=== PATIENT | female | born 1990 | race Caucasian/White ===

== ENCOUNTER 2016-05-14 20:34 | Emergency (ER) | payer OTHER ==
[~2016-05-14] VITALS: Ht 154.9 cm; Wt 59.1 kg
[~2016-05-14 20:34] MED LIST: ETON68IM3 SQ; VIT C PO
[2016-05-14 20:51] VITALS: BP 122/84; PULSE 86; RESP 16; O2SAT 97
[2016-05-14 21:22] LABS: BASOPHILS % (AUTO) 0.2 % (0-3); EOSINOPHILS % (AUTO) 2.9 % (0-5); Mean Corpuscular Hemoglobin 27.4 pg (27.0-35.0); Mean Corpuscular Volume 84.4 fL (81-100); NEUTROPHILS % (AUTO) 42.8 % (40-74); Platelet Count 229 bil/L (150-400)
[2016-05-14 21:41] VITALS: BP 113/73; PULSE 72; RESP 15; O2SAT 99
--- NOTE | 2016-05-14 21:45 | DRSVH ---
PROCEDURE: X-RAY CHEST ONE VIEW, PORTABLE ([id number]) INDICATIONS: CHEST PAIN TECHNIQUE: One view of the chest was acquired. COMPARISON: None. FINDINGS: Surgical changes and devices: None. Lungs and pleura: No pleural effusions or pneumothorax. Lungs are clear. Mediastinum: Mediastinal contours appear normal. Heart size is normal. Bones and chest wall: No suspicious bony lesions. Overlying soft tissues appear unremarkable. IMPRESSION: Acute disease is not seen in the portable upright chest. Cause of left arm numbness is no t identified. Dictated by: Jair Duval M.D. on 05/14/2016 at 21:43 Approved by: Jair Duval M.D. on 05/14/2016 at 21:43
[2016-05-14 21:46] LABS: TROPONIN T 0.01 ug/L (0.0-0.011)
--- NOTE | 2016-05-14 22:47 | ED.REPORT ---
HPI-Chest Pain Under 40 Date of Service May 14, 2016 ED Provider: Jacinto Garner MD A 26 year old female with a family history of clots and a personal history of asthma and back ligament tear presents to the ED complaining of chest pain onset this morning. The pain is exacerbated by motion and deep breathing, but relieved by sitting down to rest. The pt denies leg edema. She has never experienced similar symptoms before this episode. Nursing Notes Stated Complaint: CHEST PAIN/ARM NUMBNESS Chief Complaint: Chest Pain Nursing Notes Reviewed: Yes Allergies: Coded Allergies: acetaminophen (Verified Allergy, Severe, "delusional and vomitting", 03/21) hydrocodone (Verified Allergy, Severe, "delusional and vomitting", ) erythromycin ethylsuccinate (Verified Allergy, Mild, 03/21/16) hydromorphone (Verified Adverse Reaction, Severe, Nausea,Vomiting, ) Scheduled ([Vit C]) 250 MG PO BID Miscellaneous Medications Etonogestrel (Nexplanon) 68 Mg Implant 68 MG SQ General Time Seen by MD: 22:45 Chief Complaint Chest pain Hx Obtained From: Patient Arrived By: Walk-in Sudden in Onset?: Yes Onset Occurred: 9 - 12 hours ago Recent Healthcare: Recent doctor visit, Recent hospitalization Similar Sx Previous: No Past Medical History Past Medical History Ovarian cysts and menorrhagia s/p hysterectomy kidney infections back injury asthma Past Surgical History Reports: Hysterectomy, Tonsillectomy Family History grandmother: blood clot Smoking History Never Smoker Social History Alcohol Use: Denies alcohol use Drug Use: Denies drug use Occupation Stay at home mom Ambulatory Status Independent Review of Systems Constitutional: Denies: Chills, Fever Respiratory: Reports: Pleuritic pain, Denies: Non-productive cough, Shortness of breath Cardiovascular: Reports: Chest pain GI: Denies: Abdominal pain Musculoskeletal: Denies: Back pain, Neck pain Skin: Denies Rash Complete sys rev & neg: except as marked. Physical Exam Initial Vital Signs Vital Signs (First) Date Time Temp Pulse Resp B/P Pulse Ox O2 Delivery O2 Flow Rate FiO2 05/14/16 20:51 36.6 86 16 122/84 97 Room Air Initial VS: Reviewed, Vital signs normal General/Constitutional: Awake, Alert Respiratory / Chest: Atraumatic, Breath sounds NL, Breath sounds = bilat, No respiratory distress Cardiovascular: Heart rate NL, Regular rhythm, Heart sounds NL Neck: Atraumatic, Supple, Full range of motion Abdomen: Atraumatic, Soft, Non-tender Back: Atraumatic, Full range of motion Lower Extremity / Pelvis / MS: Atraumatic, Full range of motion Skin: Atraumatic, Color NL, No rash, Warm, Dry Neurologic: Oriented X3, Speech NL, No motor deficits, No sensory deficits Psychiatric: Affect NL, Mood NL Head / Eyes: Atraumatic, Normocephalic, PERRL, EOMI ENT: Atraumatic, Airway patent, Mucous membranes moist Upper Extremity / MS: Atraumatic, Full range of motion Ankle / Foot: Atraumatic, Full range of motion no ankle edema Interpretation & Diagnostics Lab Results Interpretation Result Diagram: 05/14/16210805/14/[id number] Test 05/14/16 21:09 White Blood Count 8.7th/mm3 (3.8-10.1) Red Blood Count 4.67mil/mm3 (3.90-5.20) Hemoglobin 12.8g/dL (12.0-15.6) Hematocrit 39.4% (35.0-46.0) Mean Corpuscular Volume 84.4fL (81-100) Mean Corpuscular Hemoglobin 27.4pg (27.0-35.0) Mean Corpuscular Hemoglobin Concent 32.5% (32.0-37.0) Red Cell Distribution Width 12.4% (12.3-15.4) Platelet Count 229bil/L (150-400) Neutrophils (%) (Auto) 42.8% (40-74) Lymphocytes (%) (Auto) 44.0% (14-46) Monocytes (%) (Auto) 10.0% (4-12) Eosinophils (%) (Auto) 2.9% (0-5) Basophils (%) (Auto) 0.2% (0-3) D-Dimer < 0.5mg/L (<0.50) Sodium Level 140mEq/L (134-144) Potassium Level 3.6mEq/L (3.5-5.2) Chloride Level 102mEq/L (97-108) Carbon Dioxide Level 25mmol/L (18-29) Blood Urea Nitrogen 15mg/dL (6-20) Creatinine 0.61mg/dL (0.57-1.00) Estimat Glomerular Filtration Rate 169mL/min (>59) Glucose Level 104mg/dL (60-99) Calcium Level 9.0mg/dL (8.5-10.1) Magnesium Level 2.0mg/dL (1.6-2.6) Total Bilirubin 0.2mg/dL (0.0-1.2) Aspartate Amino Transf (AST/SGOT) 16U/L (0-50) Alanine Aminotransferase (ALT/SGPT) 11U/L (0-32) Alkaline Phosphatase 49U/L (25-150) Troponin T 0.010ug/L (0.0-0.011) Total Protein 7.9g/dL (6.4-8.4) Albumin 4.3g/dL (3.4-5.0) X-Ray Chest Interpretation Chest Xray Interpretation: IMPRESSION: Acute disease is not seen in the portable upright chest. Cause of left arm numbness is not identified. Dictated by: Jair Duval M.D. on 05/14/2016 at 21:43 Approved by: Jair Duval M.D. on 05/14/2016 at 21:43 Interpretation / Wet Read by: Interpret - Radiologist Re-Eval/Medical Decision Med Decision/Clinical Course Pleuritic chest pain in a young female with history of GERD. Labs, to include D -dimer, EKG, and chest x-ray are normal. No indication of serious illness at this time. Likely diagnosis pleurisy and/or costochondritis. Source of Hx: Old records Re-Evaluation/Progress : Time of Eval: 00:33 Patient Status: Condition improved Re-Evaluation/Progress Note: Pt rechecked, who is resting comfortably. Lab and radiology results are discussed, as well as the plan for discharge. The pt understands and agrees with the plan. All questions are addressed at this time. Counseled Regarding: Diagnosis, Lab results, Need for follow-up, When/why to return to ED Discharge & Departure Primary Impression: Pleuritic chest pain Disposition: Home Discharge Condition All VS Reviewed: Yes Condition: Stable Patient Instructions: Chest Pain (ED) Additional Instructions: Labs, chest x-ray, and EKG show no indication of serious illness of the heart or lungs. Your pain is most likely due to a viral inflammation/infection of the lining of the lungs (pleurisy) or the rib joints (costochondritis). Anti- inflammatory medications are the best treatment for this, but because of your history of gastritis it would be better to use Tylenol. We have given you an injectable anti-inflammatory in the emergency room: Toradol (ketorolac). Follow up with your regular doctor as needed for persistent symptoms. Referrals: Yvette Nick MD (PCP) Scribe Attestation Portions of this note were transcribed by Swati Wells. I, Dr. Garner personally performed the history, physical exam and medical decision-making; I reviewed and confirmed the accuracy of the information in the transcribed note. Signed by: David Baxter, 05/15/2016 and 01:13. copies to: Yvette Nick MD, Howard L MD May 14, 2016 22:47 SWATI WELLS May 14, 2016 23:18
[2016-05-15 00:44] VITALS: BP 113/73; PULSE 92; RESP 16; O2SAT 100
[2016-05-15 00:47] VITALS: BP 113/73; PULSE 90; RESP 16; O2SAT 100
[2016-08-25] MEDS ORDERED: INDO25CA PO (10:57)
[2016-08-25] MEDS ORDERED: ETON68IM3 SQ (10:57)
[2016-08-25] MEDS ORDERED: OXYC1TAB24 PO (10:57)
[2016-08-25] MEDS ORDERED: MULT-1018 PO (10:57)
== END 2016-05-15 00:48 | disposition home or self-care (01) ==
LOC: SED 20:34
DX: R07.81 Pleurodynia (principal); J45.909 Unspecified asthma, uncomplicated; Z88.6 Allergy status to analgesic agent; Z88.5 Allergy status to narcotic agent; Z88.1 Allergy status to other antibiotic agents

== ENCOUNTER 2016-08-02 19:22 | Emergency (ER) | payer OTHER ==
[~2016-08-02] VITALS: Ht 154.9 cm; Wt 60.0 kg
[2016-08-02 19:55] VITALS: BP 111/71; PULSE 83; RESP 20; O2SAT 97
[2016-08-02 21:17] LABS: BASOPHILS % (AUTO) 0.2 % (0-3); EOSINOPHILS % (AUTO) 2.7 % (0-5); MONOCYTES % (AUTO) 10.7 % (4-12); Mean Corpuscular Hemoglobin 27.3 pg (27.0-35.0); Mean Corpuscular Volume 83.4 fL (81-100); NEUTROPHILS % (AUTO) 48.5 % (40-74); Platelet Count 240 bil/L (150-400)
--- NOTE | 2016-08-02 21:26 | ED.REPORT ---
HPI-Abd Pain F Under 40 Date of Service Aug 02, 2016 ED Provider: Binh Fernández MD 26 year old female with a history of hysterectomy, kidney infections, and ovarian cysts presents to the ER accompanied by her spouse complaining of six days of lower abdominal pain, worsening markedly this evening around 16:30. Patient denies fever, constipation, diarrhea, urinary symptoms, nausea, and vomiting. No history of appendectomy. Nursing Notes Stated Complaint: CRAMPING Chief Complaint: Female Abdominal Pain Nursing Notes Reviewed: Yes Allergies: Coded Allergies: acetaminophen (Verified Allergy, Severe, "delusional and vomitting", 03/21) hydrocodone (Verified Allergy, Severe, "delusional and vomitting", ) erythromycin ethylsuccinate (Verified Allergy, Mild, 03/21/16) ondansetron (Verified Allergy, Mild, N/V, 08/02/16) hydromorphone (Verified Adverse Reaction, Severe, Nausea,Vomiting, ) Scheduled ([Vit C]) 250 MG PO BID Promethazine HCl (Phenergan) 25 Mg Supp.rect 25 MG RC TID Scheduled PRN Ibuprofen (Ibuprofen) 600 Mg Tablet 600 MG PO QID PRN PRN For Pain Miscellaneous Medications Etonogestrel (Nexplanon) 68 Mg Implant 68 MG SQ General Time Seen by MD: 21:25 Chief Complaint Abdominal pain Hx Obtained From: Patient Arrived By: Walk-in Sudden in Onset?: No Onset Occurred: 6 days ago Symptom Duration: Since onset Location: : Abdomen lower Quality: Cramping, Painful Severity: Current: Moderate Severity: Maximum: Moderate Associated with: Denies: Constipation, Diarrhea, Dysuria, Fever, Nausea, Vomiting Pertinent Negative: Pt denies other symptoms Similar Sx Previous: Yes Past Medical History Past Medical History Ovarian cysts and menorrhagia s/p hysterectomy kidney infections back injury asthma Past Surgical History Reports: Hysterectomy, Tonsillectomy Family History grandmother: blood clot Smoking History Never Smoker Social History Alcohol Use: Denies alcohol use Drug Use: Denies drug use 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 Physical Exam Initial Vital Signs Vital Signs (First) Date Time Temp Pulse Resp B/P Pulse Ox O2 Delivery O2 Flow Rate FiO2 08/02/16 19:55 36.5 83 20 111/71 97 Room Air Initial VS: Reviewed Head / Eyes: Atraumatic, Normocephalic Neck: Supple, Non-tender, Full range of motion Extremities: Vascular intact, Neuro intact, No swelling, No tenderness Skin: Warm, Dry, No cyanosis Neurologic: Alert, Oriented, Nonfocal Psychiatric: Mood/affect normal, Behavior normal, Normal thought content General/Constitutional: Awake, Alert, Well developed, Well nourished Respiratory / Chest: Breath sounds NL, Breath sounds = bilat, No respiratory distress, No rales, No rhonchi, No wheezing Cardiovascular: Heart rate NL, Regular rhythm, Heart sounds NL, Peripheral circulation NL Abdomen: Soft, No guarding, No rebound, No distention Tenderness/Guarding/Rebound: Positive: Tender LLQ... (greater than right), Tender RLQ... Back: Inspection NL, Non-tender, No CVA tenderness ENT: Airway patent Mouth: Positive: Mucous membranes dry Interpretation & Diagnostics US ABDOMEN, RLQ CONCLUSION: Normal appendix. Electronically signed by Maxim Chacon MD Lab Results Interpretation Result Diagram: 08/02/16205708/02/[id number] Test 08/02/16 20:58 08/02/16 21:22 White Blood Count 8.5th/mm3 (3.8-10.1) Red Blood Count 4.51mil/mm3 (3.90-5.20) Hemoglobin 12.3g/dL (12.0-15.6) Hematocrit 37.6% (35.0-46.0) Mean Corpuscular Volume 83.4fL (81-100) Mean Corpuscular Hemoglobin 27.3pg (27.0-35.0) Mean Corpuscular Hemoglobin Concent 32.7% (32.0-37.0) Red Cell Distribution Width 12.7% (12.3-15.4) Platelet Count 240bil/L (150-400) Neutrophils (%) (Auto) 48.5% (40-74) Lymphocytes (%) (Auto) 37.8% (14-46) Monocytes (%) (Auto) 10.7% (4-12) Eosinophils (%) (Auto) 2.7% (0-5) Basophils (%) (Auto) 0.2% (0-3) Sodium Level 138mEq/L (134-144) Potassium Level 3.6mEq/L (3.5-5.2) Chloride Level 101mEq/L (97-108) Carbon Dioxide Level 23mmol/L (18-29) Blood Urea Nitrogen 11mg/dL (6-20) Creatinine 0.59mg/dL (0.57-1.00) Estimat Glomerular Filtration Rate 175mL/min (>59) Glucose Level 77mg/dL (60-99) Calcium Level 9.4mg/dL (8.5-10.1) Magnesium Level 2.0mg/dL (1.6-2.6) Total Bilirubin 0.2mg/dL (0.0-1.2) Aspartate Amino Transf (AST/SGOT) 17U/L (0-50) Alanine Aminotransferase (ALT/SGPT) 11U/L (0-32) Alkaline Phosphatase 44U/L (25-150) Total Protein 7.6g/dL (6.4-8.4) Albumin 4.2g/dL (3.4-5.0) Lipase 30U/L (13-60) Urine Color Yellow (YELLOW) Urine Appearance Clear (CLEAR,HAZY) Urine pH 6.0 (5.0-8.0) Urine Specific [place] 1.020 (1.003-1.035) Urine Protein Negativemg/dL (NEG,TRACE) Urine Glucose (UA) Negativemg/dL (NEGATIVE) Urine Ketones Negativemg/dL (NEGATIVE) Urine Occult Blood Negative (NEGATIVE) Urine Nitrite Negative (NEGATIVE) Urine Bilirubin Negative (NEGATIVE) Urine Urobilinogen Normalmg/dL (NORMAL) Urine Leukocyte Esterase Negative (NEGATIVE) Urine RBC 0-2/hpf (0-2) Urine WBC 0-5/hpf (0-5) Urine Epithelial Cells Many/hpf (NONE-MOD) Urine Crystals None seen (NONE SEEN) Urine Bacteria Many/hpf (NONE-FEW) Urine Hyaline Casts None/lpf (NONE) Urine Granular Casts None seen (NONE SEEN) Urine Waxy Casts None seen (NONE SEEN) Urine Red Blood Cell Casts None seen (NONE SEEN) Urine White Blood Cell Casts None seen (NONE SEEN) Urine Mucus None seen (None Seen) Urine Trichomonas None seen (NONE SEEN) Urine Yeast None (NONE SEEN) Urinalysis Comment None Urine Culture Reflexed Indicated Hold Urine Received (Received) X-Ray Abdominal Interpretation Bowels full of stool. Study: 2 view Interpretation / Wet Read by: Wet read ED physician Re-Eval/Medical Decision Med Decision/Clinical Course Med Decision/Clinical Course: 26-year-old with abdominal pain for the past five days, lower quadrant only and left worse than right. She has no evidence of bleeding, normal-appearing appendix on ultrasound, and benign-appearing labs. Risk benefits alternatives of CT discussed at length and she reasonably declined CT as advised. A single upright abdomens suggest significant stool over into the left colon and I suspect that constipation is at least a piece of her current discomfort. Provided with two guaiac suppository and milk of magnesia with a three-day route of milk of magnesia nightly suggested. Follow up with PCP. Prompt return if worse. May need to progress to CT scanning, but that is better deferred at this point given the benign labs and evaluation presently. Re-Evaluation/Progress #1: Time of Eval: 10:41 Re-Evaluation/Progress Note: Discussed US results and advised on treatment options. Patient is amenable to the plan for CT. Re-Evaluation/Progress #2: Time of Eval: 23:30 Re-Evaluation/Progress Note: Discussed lab and radiology results and plan to discharge. Patient is amenable to the plan. Return precautions given. All other questions addressed. Counseled Regarding: Diagnosis, Lab results, Need for follow-up, When/why to return to ED Discharge & Departure Primary Impression: Abdominal pain, bilateral lower quadrant Additional Impression: Constipation Disposition: Home Discharge Condition All VS Reviewed: Yes Condition: Stable Patient Instructions: Acute Abdominal Pain (ED), Constipation (DC) Additional Instructions: We do not see any evidence of significant pathology on the studies we have available. The plain x-ray shows abundant stool, and the problem may be constipation. Your blood studies are reassuringly very normal. Begin milk of magnesia 2 tablespoons nightly for three nights. Follow-up with your doctor in the office. Ibuprofen if needed for acute discomfort Zofran if needed for nausea Return if any immediate issues, particularly worsening pain, fever, vomiting, or other new symptoms of concern Referrals: OTHER,PHYSICIAN (PCP) Scribe Attestation Portions of this note were transcribed by Kaushal Hidalgo. I, Dr. Fernández, personally performed the history, physical exam and medical decision-making; I reviewed and confirmed the accuracy of the information in the transcribed note. Signed by: David Flores. 08/03/2016 - 01:06 Binh Fernández MD Aug 02, 2016 21:26 KAUSHAL HIDALGO Aug 02, 2016 21:33
[2016-08-02] MEDS ORDERED: 0.9% Sodium Chloride 1,000 ML IV ONE (21:32)
[2016-08-02] MEDS ORDERED: fentaNYL-PF 50 mCg/mL 2 mL Inj IVPUSH PRN (21:35)
[2016-08-02] MEDS ORDERED: Ketorolac 15 mg/mL Inj IVPUSH ONE (21:35)
[2016-08-02 21:52] LABS: APPEARANCE,URINE CLEAR (CLEAR,HAZY); COLOR,URINE YELLOW (YELLOW)
[2016-08-02] MEDS: 0.9% Sodium Chloride 1,000 ML IV SCH ×2 (21:52→22:43)
[2016-08-02 21:53] LABS: OCCULT BLOOD,URINE NEGATIVE (NEGATIVE); UROBILINOGEN,URINE NORMAL (NORMAL)
[2016-08-02] MEDS ORDERED: Iohexol 300 mg/mL 30 mL Inj PO ONE (22:40)
[2016-08-02] MEDS ORDERED: Magnesium Hydroxide 10 mL Oral Concentration PO ONE (23:25)
[2016-08-02] MEDS ORDERED: IBUP-1827 PO (23:27)
[2016-08-02] MEDS ORDERED: PROM25SU46 RC (23:27)
[2016-08-02 23:49] VITALS: BP 103/68; PULSE 68; RESP 18; O2SAT 99
--- NOTE | 2016-08-03 08:53 | DRSVH ---
PROCEDURE: US APPENDIX INDICATIONS: bilat lower quad pain, hx ovar cysts and bleeding TECHNIQUE: Real-time focused scanning was performed of the abdomen with attention to the appendix, with image do cumentation. COMPARISON: None. FINDINGS: Appendix visualization: Well-visualized appendix. Appendix measurements: 5.0 mm Associated findings: Echogenic fat: Absent. Appendiceal compressibility: Present. Appendicoliths: Absent. Nearby free fluid: Absent. Lymphadenopathy: Absent. Tenderness on exam: Present. IMPRESSION: Normal appendix at time of examination. If pain persists and developing appendicitis is of clinical concern, consider repeat ultrasound. Note: These findings are concordant with the preliminary interpretation. Dictated by: Naman RINCON Interpreted: Jolynn Pinzon MD on 08/03/2016 at 8:51 Transcribed by: ALINE on 08/03/2016 at 8:52 Approved by: Jolynn Pinzon MD, PhD on 08/03/2016 at 16:26
--- NOTE | 2016-08-03 08:55 | DRSVH ---
PROCEDURE: X-RAY ABDOMEN, ONE VIEW ([id number]) INDICATIONS: pain lower quads TECHNIQUE: One view of the abdomen acquired. COMPARISON: None. FINDINGS: Surgical changes and devices: None. Bowel: Bowel gas pattern is normal. Soft tissues: No suspicious abdominal calcifications. Visualized solid organ contours appear normal in size. Bones: No suspicious bony lesions. IMPRESSION: No acute process identified. Dictated by: Naman German [facility] Interpreted: Jolynn Pinzon MD on 08/03/2016 at 8:54 Transcribed by: ALINE on 08/03/2016 at 8:55 Approved by: Jolynn Pinzon MD, PhD on 08/03/2016 at 16:27
[2016-08-25] MEDS ORDERED: OXYC1TAB24 PO (10:57)
[2016-08-25] MEDS ORDERED: INDO25CA PO (10:57)
[2016-08-25] MEDS ORDERED: ETON68IM3 SQ (10:57)
[2016-08-25] MEDS ORDERED: MULT-1018 PO (10:57)
== END 2016-08-02 23:53 | disposition home or self-care (01) ==
LOC: SED 19:22
DX: K59.00 Constipation, unspecified (principal); J45.909 Unspecified asthma, uncomplicated; Z90.710 Acquired absence of both cervix and uterus; Z87.448 Personal history of other diseases of urinary system; Z87.42 Personal history of other diseases of the female genital tract; Z88.1 Allergy status to other antibiotic agents; Z88.5 Allergy status to narcotic agent; Z88.6 Allergy status to analgesic agent; Z88.8 Allergy status to other drugs, medicaments and biological substances
CPT/HCPCS: 36415; 74000; 76705; 80053; 81000; 83690; 83735; 85025; 87086; 96361; 96374; 96375; 99285; J1885; J3010; J7030

== ENCOUNTER 2016-08-29 11:28 | Day surgery (SDC) | payer OTHER ==
[~2016-08-29] VITALS: Ht 154.9 cm; Wt 59.5 kg
[2016-08-29] VITALS (11 sets, daily range): BP systolic 102–131; BP diastolic 61–78; PULSE 52–95; RESP 9–17; O2SAT 97–100
[~2016-08-29 11:28] MED LIST changes: +CeFAZolin Inj 2 GM in IV Premix 1 EACH IV ONE; +Heparin 5,000 Unit/mL Inj SUBQ ONE; +INDO25CA PO; +Lactated Ringer's 1,000 ML IV SCH; +MULT-1018 PO; +OXYC1TAB24 PO; -VIT C PO
[2016-08-29] MEDS ORDERED: Ondansetron 2 mg/mL 2 mL Inj ONE (11:29)
[2016-08-29] MEDS ORDERED: fentaNYL-PF 50 mCg/mL 2 mL Inj ONE (11:29)
[2016-08-29] MEDS ORDERED: MetoCLOpramide 5 mg/mL 2 mL Inj ONE (11:29)
[2016-08-29] MEDS ORDERED: Propofol 10,000 mCg/mL 20 mL Inj ONE (11:29)
[2016-08-29] MEDS ORDERED: Dexamethasone 4 mg/mL Inj ONE (11:29)
[2016-08-29] MEDS ORDERED: Neostigmine 1 mg/mL 10 mL Inj ONE (11:29)
[2016-08-29] MEDS ORDERED: Rocuronium 10 mg/mL 5 mL Inj ONE (11:29)
[2016-08-29] MEDS ORDERED: Glycopyrrolate 0.2 MG/ML 1mL Inj ONE (11:29)
[2016-08-29] MEDS ORDERED: Heparin 5,000 Unit/mL Inj ONE (11:30)
[2016-08-29] MEDS ORDERED: CeFAZolin Inj 2 gm / 50mL D5W IV ONE (11:31)
[2016-08-29] MEDS ORDERED: metroNIDAZOLE 500 mg/100 mL NS Premix IV ONE (11:31)
--- NOTE | 2016-08-29 15:01 | PCM.HPANE ---
Patient Data Surgeon Admitting Provider: Attending Provider:Medina Mccray MD Primary Care Physician:Yvette Nick MD Other Provider:Christiana Sanches Anesthesia Reason for Visit Pelvic Pain, Right Lower Quadrant Pain Ht/WT & BMI Height (Feet): 5 Height (Inches): 1.00 Weight (Kilograms): 59.5 Body Mass Index 24.00 Allergies Coded Allergies: acetaminophen (Verified Allergy, Severe, "delusional and vomitting", 03/21) hydrocodone (Verified Allergy, Severe, "delusional and vomitting", ) erythromycin ethylsuccinate (Verified Allergy, Mild, 03/21/16) ondansetron (Verified Allergy, Mild, N/V, 08/02/16) hydromorphone (Verified Adverse Reaction, Severe, Nausea,Vomiting, ) Past Anesthesia History Anesthesia History: Denies:: Abnormal Airway, Anesthesia Reactions, Difficult Intubation Diabetes History Hx Diabetes?: No Current Bedside Blood Glucose: 85 MRSA MRSA: No Medications Home Meds Incl Beta Didi: No Reported Medications oxyCODONE-Acetaminophen 5-325 mg 1 Each Tablet1 Tab PO Q4H PRN For Pain Ref 0 08/25/16 Etonogestrel (Nexplanon)68 Mg [id number] Mg SQ DAILY 08/25/16 Multivitamin (Multi Vitamin Daily)1 Each Tablet1 Each PO DAILY 30 Days Ref 0 08/25/16 Indomethacin 25 Mg [id number] Mg PO TID Ref 0 08/25/16 Discontinued Reported Medications Etonogestrel (Nexplanon)68 Mg [id number] Mg SQ 10/13/14 [Vit C] No Conflict [id number] Mg PO BID 07/27/12 Discontinued Scripts Promethazine HCl (Phenergan)25 Mg Supp.rect25 Mg RC TID #10 SUPP Prov:Binh Fernández MD 08/02/16 Ibuprofen 600 Mg [id number] Mg PO QID PRN For Pain #30 TABLET Prov:Binh Fernández MD 08/02/16 History History of ENT Problems?: No HEENT History: Denies:: Abnormal Airway Cataracts Difficult Intubation Dysphagia Hearing Problem Sinus Problem TMJ Denture Type: None Teeth Condition: Within Normal Limits Hx of Heart Problems?: No Cardiovascular History: Denies:: AICD Abdominal Aortic Aneurism Atrial Fibrillation Cardiac Surgery Chest Pain Congestive Heart Failure Edema Heart Murmur Hypertension Irregular Heartbeat Pacemaker Rheumatic Fever Thrombophlebitis Valvular Heart Disease Hx of Respiratory Problem?: Yes Respiratory History: Positive for:: Asthma (rare sx) Denies:: COPD Emphysema Oxygen Administration Tuberculosis Use of C-PAP Machine Hx Neurologic Problems?: No Neurological History: Denies:: Alzheimer's Disease CVA Dementia Dizziness Headaches Multiple Sclerosis Parkinson's Disease Seizures Hx of GI Problems?: No Other GI Pertinent History: persistent right sided pelvic pain- appy scheduled this admission Hx of Problems?: No Genitourinary History: Denies:: HX of Hemodialysis Kidney Stones Urinary Tract Infection Female Hx: Denies:: Currently Problems with Breasts? Hx Musculoskeletal Problems?: No Musculoskeletal History: Denies:: Back Injury Degenerative Joint Joint Replacement Musculoskeletal Trauma Systemic Lupus Hx of Psycho/Social Problems?: No Psycho Social History: Denies:: Anxiety Bipolar Disorder Hx Depression Suicide Attempt Hx Surgeries?: Yes (partial hyst, tonsil) Hx Any Other Health Problems?: Yes Other History: Denies:: Cancer Thyroid Disease Hx Diabetes: NoBedside Blood Glucose: 85 Hx Alcohol Use: NoHx Substance Use: No Smoking Status: Never Smoker Have You Smoked inLast 12 mo: No Stop/Bang Treated for Sleep Apnea?: No Do You Have a CPAP Machine?: No P-Blood Pressure: treated: No B- Body Mass Index > 35 kg/m2: No A- Age over 50: No N- Neck Large Circumference: No G- Gender Male: No YUKI Risk Assessment: Low Risk, <3 Yes Risk Assessment Category Category 1A: Patient has history of documented sleep apnea, and HAS NOT received any narcotic, sedative or anesthesia administration during this stay. Category 1B: Patient has history of documented sleep apnea, and HAS received any narcotic , sedative or anesthesia administration during this stay Category 2: Patient has SUSPECTED Obstructive Sleep Apnea, and HAS received any narcotic , sedative or anesthesia administration during this stay. Category 3: Patient has SUSPECTED Obstructive Sleep Apnea and HAS NOT received narcotic, sedative or anesthesia administration during this stay. Category 4: Outpatient in Procedural Areas with known sleep apnea or who screen positive for High Risk via the STOP/BANG questionnaire. Exam Exam Vital Signs Vital Signs Date Time Temp Pulse Resp B/P Pulse Ox O2 Delivery O2 Flow Rate FiO2 08/29/16 12:00 36.9 70 16 107/73 100 Room Air General Appearance: Oriented X3 HEENT/AIRWAY: MP 1 Lungs: Normal Air Movement Heart: Regular Rate/Rhythm Meds/Labs/Diagnostics Bedside Blood Glucose: 85 Plan Impression Patient chart reviewed, patient interviewed and anesthestic plan with risks, benefits, and alternatives discussed, and informed consent obtained. ASA Physical Status: ASA2 Mod Systemic Disease Anesthetic Plan: GA Bene/Risks/Altern/Consents: Yes HP Complete Prior to Induction: Yes Ricardo Leong MD Aug 29, 2016 15:01
[2016-08-29] MEDS ORDERED: Lactated Ringer's 1,000 ML IV ONE (15:18)
[2016-08-29] MEDS ORDERED: Bupivacaine-MPF 0.5% 30 mL Inj INFILTRATE ONE (16:01)
[2016-08-29] MEDS ORDERED: oxyCODONE-Acetamin 5-325 mg Tablet PO PRN (16:55)
[2016-08-29] MEDS ORDERED: MetoCLOpramide 5 mg/mL 2 mL Inj IVPUSH PRN ×2 (16:55→17:15)
[2016-08-29] MEDS ORDERED: diphenhydrAMINE 25 mg Capsule PO PRN (16:55)
--- NOTE | 2016-08-29 16:59 | PCM.SURGOP ---
Surgical Operative Report Date of Service: Aug 29, 2016 Pre Operative Diagnosis 1. Chronic pelvic pain 2. Ovarian cysts Post Operative Diagnosis 1. Chronic pelvic pain 2. Ovarian cysts Procedure: 1. Laparoscopic right oophorectomy 2. Peritoneal biopsies 3. Laparoscopic appendectomy performed by Enrico Navas see his operative note. Surgeon and Car Park Attendant: Surgeon: Medina Mccray MD Assistants: Nadege Stevens MD Resident: Zully Dee DO PGY1 Indication for Procedure 23-year-old 4 para 2 with a history of a previous hysterectomy and endometriosis who has persistent pelvic pain and recurrent ovarian cysts. She wanted her right ovary removed and a laparoscopy to reevaluate for recurrent endometriosis or other cause for her pain. She was seen by Dr. Enrico Navas with general surgery to have an incidental appendectomy performed at the time of her laparoscopy given her history of pain and multiple ER visits. Findings: Intraoperative findings showing normal-appearing ovaries bilaterally. There were no pelvic adhesions appreciated. The upper abdomen was normal in appearance. The appendix was normal in appearance. There were some white lesions bilaterally on the pelvic sidewalls which could be endometriosis or scar tissue related to previous hysterectomy. Procedure Details Patient was taken operating room where her general anesthesia was obtained without difficulty. She was placed in the lithotomy position and prepared and draped in normal sterile fashion. Dr. Calos Navas performed a laparoscopic appendectomy. See his operative note for details. The patient had an 12 millimeter umbilical port and 2 left sided 5 mm ports placed. Survey of the abdomen was noted as above. The ureters were clearly identified and the right ovary was grasped and the infundibulopelvic ligament was transected with endometrioid device. The right ovary was removed through the umbilicus. Good hemostasis was assured. The Thunderbeat cautery device was then used to excise a small piece of peritoneum bilaterally from the pelvic sidewalls and were sent to pathology. Posterior cul-de-sac was noted be free of any adhesions. The appendectomy site was hemostatic at the end of the case. All instruments removed from the patient's peritoneal cavity and the pneumoperitoneum was released. The fascia at the umbilicus was closed with 0 Vicryl suture in a running fashion. The skin at all port sites were closed with a 4-0 Vicryl in subcutaneous fashion and Dermabond applied. All lap instrument and needle counts were correct 2. at the end of the procedure patient was taken to recovery room awake and in good condition. Complications There were no periprocedural complications identified. Surgical Specimen Removed: Yes Specimen sent to Pathology: Yes Surgical Specimen description: 1. Appendix 2. Right ovary 3. Left and Right pelvic wall peritoneal biopsies Anesthetic Plan: GA Grafts, Implants: None Output, Estimated Blood Loss: 5 Blood Administration during hardwick: No Stent(s) none Catheters: None Post Operative Plan Discharge home when awake and stable Medina Mccray MD Aug 29, 2016 16:59
--- NOTE | 2016-08-29 17:08 | PCM.DIGYN ---
Surgical Discharge Instruction Dates of Hospitalization Date of Hospital Admission Providers Admitting Physician: Primary Care Physician: Yvette Nick MD Attending Physician: Medina Mccray MD Diagnosis at Time of Discharge Diagnosis at time of discharge 1. Chronic pelvic pain 2. Ovarian cysts Problems: Diet Discharge Diet: No restrictions Activity Discharge Activity-General: Balance rest and activity, No lifting >15 pounds for 2 weeks, No lifting >10 pounds for 4-6 weeks, No driving while taking narcotic Dressing and Incisional Care Dressing Care: Keep dressing clean, dry & intact, Remove outer dressing after 24 hrs Hygiene: May shower, Wash incision with soap & water, DO NOT soak incision under water, NO bathtub, hot tub or whirlpool Follow Up Plan Follow-up Provider (F9): Medina Mccray MD Follow-up appointment: Weeks (2) Call your provider for: Fever, Chills, Shortness of breath, Vomitting, Drainage at incision, Wound redness, Increasing pain Zully Dee DO Aug 29, 2016 17:08
[2016-08-29] MEDS ORDERED: Lactated Ringer's 500 ML IV PRN (17:11)
[2016-08-29] MEDS ORDERED: Lactated Ringer's 1,000 ML IV SCH (17:11)
[2016-08-29] MEDS ORDERED: Phenylephrine 10,000 mCg/mL Inj IVPUSH PRN (17:15)
[2016-08-29] MEDS ORDERED: EPHEDrine Sulfate 50 mg/mL Inj IVPUSH PRN (17:15)
[2016-08-29] MEDS ORDERED: Dexamethasone 4 mg/mL Inj IVPUSH PRN (17:15)
[2016-08-29] MEDS: fentaNYL-PF 50 mCg/mL 2 mL Inj IVPUSH PRN ×3 (17:16→17:53)
--- NOTE | 2016-08-29 23:00 | OP ---
[address] [address] OPERATIVE REPORT PATIENT: STEVE KWOK : 1990 MR#: [id number] ADMIT: 08/29/2016 JOB ID: [id number] DATE OF SURGERY: 08/29/2016 PREOPERATIVE DIAGNOSIS(ES): Chronic recurrent right lower quadrant pain. POSTOPERATIVE DIAGNOSIS(ES): Chronic recurrent right lower quadrant pain. PROCEDURE: Laparoscopic appendectomy. SURGEON: Gualberto Navas MD. SALES DRIVER: Medina Mccray MD. INDICATIONS: The patient is a 26-year-old female who has chronic recurrent right lower quadrant pain requiring frequent trips to the emergency department. Appendicitis has never been identified. But after discussing options with the patient, and seeing her in consultation for Dr. Binh Mccray, Dr. Mccray planned to do a right oophorectomy. I discussed options with the patient, and it did seem reasonable to proceed with a laparoscopic appendectomy. The reason for that is that if she continued to have recurrent episodes of right lower quadrant pain that the appendix would be removed and that is obviously then removed from the differential diagnosis. She has had no evidence of inflammatory bowel disease. FINDINGS: Appendix grossly looked normal. The base of the appendix looked normal. The terminal ileum, the cecum and ascending colon were grossly normal. PROCEDURE: At the beginning and end of the operation, the SCOAP checklist was completed. A Dee catheter was inserted. She had on pneumatic hose. Received antibiotics and subcutaneous heparin. Dr. Ricardo Leong induced general endotracheal anesthesia. Using ChloraPrep, she was prepped and draped in the usual fashion. All trocar sites were infiltrated with 0.5% plain bupivacaine. An infraumbilical incision was made. The abdominal cavity was entered. There were no adhesions. A cannula inserted. Under direct visualization, a 5 mm port was placed in the left lower quadrant and one in the suprapubic region. The appendix was identified and elevated it. Using the Thunderbeat the mesoappendix was divided successfully without evidence of bleeding and then the base of the appendix was divided with laparoscopic IMELDA with a blue visceral load. The specimen was placed into a specimen bag and removed through the umbilical port. The staple line was secure. There was no evidence of bleeding from the mesoappendix. I then turned the operation over to Dr. Mccray. Critical assistance provided by Binh Mccray MD [facility] CENTERMichelle
--- NOTE | 2016-08-30 08:01 | PCM.ANEP1 ---
Post Anesthesia Phase 1 PACU Phase 1 Assessment Date of Service: Aug 29, 2016 Anesthetic Administered: GA Level of Alertness: Awake, talking Pain: No Nausea or Vomiting: No Cardiovascular Function and Hy: Yes Oxygen Delivery: Room Air Lungs: Normal Air Movement Ricardo Leong MD Aug 30, 2016 08:01
--- NOTE | 2016-09-01 11:04 | PATH ---
SURGICAL PATHOLOGY Attending Physician:Medina Mccray, CASE STATUS: Signed Out PATIENT NAME: STEVE KWOK PID: [id number] : 1990 DATE COLLECTED:08/29/2016 00:00 SPECIMEN: 1: Appendix 2: Peritoneum, Biopsy or Resection 3: Ovary +/- tube, non-tumor 4: Peritoneum, Biopsy or Resection CLINICAL HISTORY: RIGHT LOWER QUADRANT PAIN 1). APPENDIX 2). RIGHT PERITONEAL BIOPSY 3). RIGHT OVARY 4). LEFT PERITONEAL BIOPSY FINAL DIAGNOSIS: 1.APPENDIX: APPENDIX WITH NO PATHOLOGIC ALTERATIONS. NO EVIDENCE OF MALIGNANCY. 2.RIGHT PERITONEAL BIOPSY: FIBROVASCULAR CONNECTIVE TISSUE WITH FOCUS OF HEMOSIDERIN AND MACROPHAGES. NO ENDOMETRIAL GLANDS OR STROMAL CELLS IDENTIFIED. NO EVIDENCE OF NEOPLASIA. 3.RIGHT OVARY: OVARY WITH CYSTIC FOLLICLES. NO EVIDENCE OF NEOPLASIA. 4.LEFT PERITONEAL BIOPSY: FIBROVASCULAR CONNECTIVE TISSUE WITH FOCI OF HEMOSIDERIN AND FOREIGN BODY REACTION. NO ENDOMETRIAL GLANDS OR STROMA IDENTIFIED. NO EVIDENCE OF NEOPLASIA. ICD10 CODE R58 GROSS DESCRIPTION: The specimens are received in formalin, labeled with the patient's name, and sublabeled as the following: (1) appendix; (2) right peritoneal biopsy; (3) right ovary; (4) left peritoneal biopsy. (1) The specimen consists of an intact appendix (length-4.2 cm, diameter-1.0 cm) with attached mesoappendix (up to 1.9 cm in depth). The resection margin is received stapled. The serosa is pink smooth and shiny. The lumen contains jensen-orange solid firm material. The wall is up to 0.1 cm thick. No nodules, masses or lesions are identified. Ink code: black-proximal. Section code: (1A) appendix, quality audit representative. (2) The specimen consists of an unoriented piece of valenzuela-white smooth shiny rubbery tissue (1.0 x 0.6 x 0.2 cm). Section code: (28) tissue, serially sectioned. Specimen entirely submitted. (3) The specimen consists of an ovary (4.5 x 3.4 x 1.8 cm). The serosa is jensen-yellow smooth shiny and flat. The parenchyma is jensen-white and solid cystic. The cavities (0.1 cm-1.5 cm) containing clear colorless fluid. The section code: (3A) ovary, serially sectioned, quality audit representative. (4) The specimen consists of multiple pieces of valenzuela-white and firm glistening fibrous tissue (1.3 x 1.2 x 0.4 cm in aggregate). Section code: (4A) tissue, serially sectioned. The specimen entirely submitted. 08/30/16 JM MICRO DESCRIPTION: See diagnosis. ICD-9 CODES: CPT CODES: 1: 99513 2: 14294 3: 98345 4: 60343 Electronically Signed Out Jennie Colvin MD [facility] [address], [place] [address] Technical component performed at [facility], [facility] [address], [address]
== END 2016-08-29 23:59 | disposition home or self-care (01) ==
LOC: SAS 11:28
PROVIDERS: ATTEND Obstetrics & Gynecology
DX: R10.2 Pelvic and perineal pain (principal); N83.01 Follicular cyst of right ovary; N80.9 Endometriosis, unspecified; R10.31 Right lower quadrant pain; J45.909 Unspecified asthma, uncomplicated; F41.9 Anxiety disorder, unspecified; Z87.440 Personal history of urinary (tract) infections; Z90.710 Acquired absence of both cervix and uterus
CPT/HCPCS: 44970; 58661; J0690; J1644; J3010; J3490; J7120